=== PATIENT | male | born 1970 | race Caucasian/White ===

== ENCOUNTER 2020-01-25 16:09 | Emergency (ER) | payer SELFPAY ==
[~2020-01-25] VITALS: Ht 167.6 cm; Wt 70.0 kg
[~2020-01-25 16:09] MED LIST: CLIN300C8 PO
--- NOTE | 2020-01-25 18:00 | RAD ---
Exam: CT head INDICATION: Seizure this a.m. TECHNIQUE: Sequential axial images through the head were obtained without the administration of IV contrast. Comparisons: None FINDINGS: No focal parenchymal lesion or hemorrhage is identified. There is no midline shift or sulcal effacement. No acute vascular territory infarction is identified. Yang-white distinction is preserved. The ventricular system is within normal limits without compression hydrocephalus. The basal cisterns are well maintained. The visualized portions of the paranasal sinuses and mastoid air cells are well-pneumatized. No acute fractures. IMPRESSION: No acute intracranial abnormality. Exposure: One or more of the following in the visualized dose reduction techniques were utilized for this examination: 1. Automated exposure control 2. Adjustment of the MA and/or KV according to patient size Use of iterative of reconstructive technique Electronically signed by: Ganesh Munguia MD (01/25/2020 5:57 PM) [id number]
[2020-01-25 18:07] LABS: BASO # 0.1 x10^3/uL (0.0-0.2); BASO % 1 % (0-3); EOS # 0.1 x10^3/uL (0.0-0.7); EOS % 1 % (0-3); HEMATOCRIT 48.1 % (39.0-53.0); HEMOGLOBIN 16.3 g/dL (13.0-17.5); LYMPH # 1.7 x10^3/uL (1.0-4.8); LYMPH % 14 % (24-48); MEAN CORPUSCULAR HEMOGLOBIN 29 pg (25-35); MEAN CORPUSCULAR HGB CONC 34 g/dL (31-37); MEAN CORPUSCULAR VOLUME 85 fL (79-100); MONO # 0.7 x10^3/uL (0.0-1.1); MONO % 6 % (0-9); NEUT # 9.9 x10^3/uL (1.8-7.7); NEUT % 79 % (31-73); PLATELET COUNT 281 x10^3/uL (140-400); RED BLOOD COUNT 5.69 x10^6/uL (4.30-5.70); RED CELL DISTRIBUTION WIDTH 14.4 % (11.5-14.5); WHITE BLOOD COUNT 12.5 x10^3/uL (4.0-11.0)
[2020-01-25 18:07] LABS: BILIRUBIN,URINE NEGATIVE (NEG); CLARITY,URINE CLEAR; COLOR,URINE YELLOW; NITRITE,URINE NEGATIVE (NEG); PROTEIN,URINE NEGATIVE (NEG-TRACE); UROBILINOGEN,URINE 0.2 mg/dL (0.2 mg/dL)
[2020-01-25 18:11] LABS: CALCIUM 8.9 mg/dL (8.5-10.1); CREATININE 1.1 mg/dL (0.7-1.3); GFR 71.8; POTASSIUM 4.2 mmol/L (3.5-5.1)
[2020-01-25 18:16] LABS: ALBUMIN/GLOBULIN RATIO 1.3 (1.0-1.7); MAGNESIUM 2.6 mg/dL (1.8-2.4); TOTAL BILIRUBIN 0.2 mg/dL (0.2-1.0); TOTAL PROTEIN 7.1 g/dL (6.4-8.2)
[2020-01-25 18:16] LABS: BACTERIA,URINE 0 /HPF (0-FEW); RBC,URINE 0 /HPF (0-2); SQUAMOUS EPITHELIAL CELL,UR FEW /LPF; WBC,URINE OCC /HPF (0-4)
[2020-01-25 18:21] LABS: PROTHROMBIN TIME PATIENT 12.1 SEC (11.7-14.0)
[2020-01-25 18:24] LABS: BARBITURATES NEG (NEG); BENZODIAZEPINES NEG (NEG); CANNABINOIDS POS (NEG); COCAINE NEG (NEG); METHADONE NEG (NEG); OPIATES NEG (NEG); PHENCYCLIDINE NEG (NEG)
[2020-01-25 18:28] LABS: AMPHETAMINE/METHAMPHETAMINE NEG (NEG)
[2020-01-25 18:56] VITALS: BP 108/72
--- NOTE | 2020-01-25 18:57 | PHYS DOC ---
Past Medical History Past Medical History: No Pertinent History (LORIE JEFFERSON APRN) Past Surgical History: No Surgical History (LORIE JEFFERSON APRN) Smoking Status: Current Every Day Smoker Alcohol Use: Occasionally Drug Use: Marijuana (LORIE JEFFERSON APRN) Attending Signature I have participated in the care of this patient and I have reviewed and agree with all pertinent clinical information above including history, exam, and recommendations. (GRUPO DHILLON MD) Adult General Chief Complaint Chief Complaint: SEIZURE HPI HPI Patient is a 49 year old male, who presents to the emergency department via POV today with complaints of a like activity that happened early this morning while the patient was sleeping. Patient states that his significant other called the ambulance after she found him shaking all over in the bed and foaming at the mouth. Patient states he did not come to the hospital by ambulance because he was told he refused to be transferred. Patient denies any history of seizures. He states he does not remember refusing ambulance transfer to the hospital or anything about the events that occurred this morning. He is unable to recall anything until after he woke up from a nap this afternoon. He denies any recent head injury. He currently complains of a dull headache and feeling sore all over. Patient currently rates his pain a 4 out of 10 on the pain scale, he states that is mostly in the right lateral side of his neck and radiates to the back of his head. He denies any nausea, vomiting, diarrhea, abdominal pain, chest pain, palpitations, fever, ear pain, sore throat, cough, shortness of breath, or wheezing. He denies any alleviating or exacerbating factors. (LORIE JEFFERSON APRN) Review of Systems Review of Systems Complete ROS is negative unless otherwise noted in HPI. (LORIE JEFFERSON APRN) Allergies Allergies Allergies Coded Allergies Type Severity Reaction Last Updated Verified No Known Allergies Allergy Unknown 05/01/16 Yes (GRUPO DHILLON MD) Physical Exam Physical Exam See Above Constitutional: Well developed, well nourished, no acute distress, non-toxic appearance. [] HENT: Normocephalic, atraumatic, bilateral external ears normal, oropharynx moist, no oral exudates, nose normal. [] Eyes: PERRLA, EOMI, conjunctiva normal, no discharge. [] Neck: Normal range of motion, no bony tenderness, supple, no stridor. [] Cardiovascular:Heart rate regular rhythm, no murmur [] Lungs & Thorax: Bilateral breath sounds clear to auscultation, Respirations even and unlabored, no retractions, no respiratory distress [] Abdomen: Bowel sounds normal, soft, no tenderness, no masses, no pulsatile masses. [] Skin: Warm, dry, no erythema, no rash. [] Back: No tenderness Extremities: No cyanosis, ROM intact, no edema. [] Neurologic: Alert and oriented X 3, no focal deficits noted. [] Psychologic: Affect normal, judgement normal, mood normal. [] (LORIE JEFFERSON APRN) Current Patient Data Vital Signs Vital Signs Date Time Temp Pulse Resp B/P (MAP) Pulse Ox O2 Delivery O2 Flow Rate FiO2 01/25/20 18:56 66 16 98 01/25/20 17:15 97.9 149/88 (108) Room Air 97.9 (GRUPO DHILLON MD) Lab Values Laboratory Tests Test 01/25/20 17:15 01/25/20 17:27 Urine Collection Type Unknown Urine Color Yellow Urine Clarity Clear Urine pH 6.0 (<5.0-8.0) Urine Specific [place] 1.010 (1.000-1.030) Urine Protein Negative mg/dL (NEG-TRACE) Urine Glucose (UA) Negative mg/dL (NEG) Urine Ketones (Stick) Negative mg/dL (NEG) Urine Blood Negative (NEG) Urine Nitrite Negative (NEG) Urine Bilirubin Negative (NEG) Urine Urobilinogen Dipstick 0.2 mg/dL (0.2 mg/dL) Urine Leukocyte Esterase Negative (NEG) Urine RBC 0 /HPF (0-2) Urine WBC Occ /HPF (0-4) Urine Squamous Epithelial Cells Few /LPF Urine Bacteria 0 /HPF (0-FEW) Urine Opiates Screen Neg (NEG) Urine Methadone Screen Neg (NEG) Urine Barbiturates Neg (NEG) Urine Phencyclidine Screen Neg (NEG) Urine Amphetamine/Methamphetamine Neg (NEG) Urine Benzodiazepines Screen Neg (NEG) Urine Cocaine Screen Neg (NEG) Urine Cannabinoids Screen Pos (NEG) Urine Ethyl Alcohol Neg (NEG) White Blood Count 12.5 x10^3/uL (4.0-11.0) H Red Blood Count 5.69 x10^6/uL (4.30-5.70) Hemoglobin 16.3 g/dL (13.0-17.5) Hematocrit 48.1 % (39.0-53.0) Mean Corpuscular Volume 85 fL (79-100) Mean Corpuscular Hemoglobin 29 pg (25-35) Mean Corpuscular Hemoglobin Concent 34 g/dL (31-37) Red Cell Distribution Width 14.4 % (11.5-14.5) Platelet Count 281 x10^3/uL (140-400) Neutrophils (%) (Auto) 79 % (31-73) H Lymphocytes (%) (Auto) 14 % (24-48) L Monocytes (%) (Auto) 6 % (0-9) Eosinophils (%) (Auto) 1 % (0-3) Basophils (%) (Auto) 1 % (0-3) Neutrophils # (Auto) 9.9 x10^3/uL (1.8-7.7) H Lymphocytes # (Auto) 1.7 x10^3/uL (1.0-4.8) Monocytes # (Auto) 0.7 x10^3/uL (0.0-1.1) Eosinophils # (Auto) 0.1 x10^3/uL (0.0-0.7) Basophils # (Auto) 0.1 x10^3/uL (0.0-0.2) Prothrombin Time 12.1 SEC (11.7-14.0) Prothrombin Time INR 0.9 (0.8-1.1) Activated Partial Thromboplast Time 25 SEC (24-38) Sodium Level 137 mmol/L (136-145) Potassium Level 4.2 mmol/L (3.5-5.1) Chloride Level 102 mmol/L (98-107) Carbon Dioxide Level 28 mmol/L (21-32) Anion Gap 7 (6-14) Blood Urea Nitrogen 11 mg/dL (8-26) Creatinine 1.1 mg/dL (0.7-1.3) Estimated GFR (Cockcroft-Gault) 71.8 BUN/Creatinine Ratio 10 (6-20) Glucose Level 83 mg/dL (70-99) Lactic Acid Level 0.7 mmol/L (0.4-2.0) Calcium Level 8.9 mg/dL (8.5-10.1) Magnesium Level 2.6 mg/dL (1.8-2.4) H Total Bilirubin 0.2 mg/dL (0.2-1.0) Aspartate Amino Transferase (AST) 23 U/L (15-37) Alanine Aminotransferase (ALT) 32 U/L (16-63) Alkaline Phosphatase 88 U/L (46-116) Creatine Kinase 408 U/L (39-308) H Creatine Kinase MB (Mass) 4.4 ng/mL (0.0-3.6) H Creatine Kinase MB Relative Index 1.1 % (0-4) Troponin I Quantitative < 0.017 ng/mL (0.000-0.055) Total Protein 7.1 g/dL (6.4-8.2) Albumin 4.0 g/dL (3.4-5.0) Albumin/Globulin Ratio 1.3 (1.0-1.7) Ethyl Alcohol Level < 10 mg/dL (0-10) Laboratory Tests 01/25/20 17:27 Laboratory Tests 01/25/20 17:27 (GRUPO DHILLON MD) EKG EKG [] (LORIE JEFFERSON APRN) Radiology/Procedures Radiology/Procedures PROCEDURE: CT HEAD WO CONTRAST Exam: CT head INDICATION: Seizure this a.m. TECHNIQUE: Sequential axial images through the head were obtained without the administration of IV contrast. Comparisons: None FINDINGS: No focal parenchymal lesion or hemorrhage is identified. There is no midline shift or sulcal effacement. No acute vascular territory infarction is identified. Yang-white distinction is preserved. The ventricular system is within normal limits without compression hydrocephalus. The basal cisterns are well maintained. The visualized portions of the paranasal sinuses and mastoid air cells are well-pneumatized. No acute fractures. IMPRESSION: No acute intracranial abnormality. Exposure: One or more of the following in the visualized dose reduction [] (LORIE JEFFERSON APRN) Course & Med Decision Making Course & Med Decision Making Pertinent Labs and Imaging studies reviewed. (See chart for details) Patient is a 49-year-old male who presented to the emergency room for evaluation following a reported witnessed seizure-like episode that happened earlier this morning. Work-up included a lab work and CT scan. CBC revealed a white blood cell count of 12.5, otherwise unremarkable; PT and INR within normal limits; CMP revealed an magnesium of 2.6, CK of 408, CK-MB of 4.4, negative troponin, negative lactic acid; UA is unremarkable; [] UDS was positive for cannabinoids which the patient admitted to using marijuana daily. CT scan of his head revealed no acute findings. The patient's vital signs were stable in the emergency department there was no seizure activity while in our care. He is encouraged to follow-up with Dr. Hardy for further evaluation of possible seizure-like activity. Patient was instructed not to drive until he had been evaluated and cleared by Dr. Hardy. He was also encouraged to return to the emergency room if his symptoms worsen. Patient verbalized an understanding of home care, medications, follow-up, and return to ED instructions and was in agreement with the plan of care. (LORIE JEFFERSON APRN) Dragon Disclaimer Dragon Disclaimer This electronic medical record was generated, in whole or in part, using a voice recognition dictation system. (LORIE JEFFERSON APRN) Departure Departure Impression: Primary Impression: Witnessed seizure-like activity Disposition: HOME, SELF-CARE Condition: STABLE Referrals: NO PCP (PCP) JUAN KAY MD Patient Instructions: Seizure, Adult, [id number] Additional Instructions: You have been diagnosed with an episode of seizure-like activity. This requires further evaluation by a neurologist. Please follow-up with Dr. Hardy for further evaluation. Do not drive until you have been evaluated by Dr. Hardy. Please return to the emergency room if symptoms worsen. LORIE JEFFERSON APRN Jan 25, 2020 18:57 GRUPO DHILLON MD Jan 26, 2020 01:33
--- NOTE | 2020-01-26 05:51 | EKG ---
[facility] [address] [place] [address] Test Date: 2020-01-25 Test Time: 18:01:45 Pat Name: JUAN MCCLELLAND Department: Room: Gender: M [employer] Tech: : [id number] Requested By: LORIE JEFFERSON Order Number: [id number] Reading MD: Measurements Intervals [place] Rate: 71 P: 66 OK: 150 QRS: 58 QRSD: 74 T: 69 QT: 356 QTc: 391 Interpretive Statements SINUS RHYTHM LEFT ATRIAL ABNORMALITY ABNORMAL ECG RI6.01 No previous ECG available for comparison
== END 2020-01-25 19:16 | disposition home or self-care (01) ==
LOC: ER 16:09
DX: R56.9 Unspecified convulsions (principal); R51 Headache; F17.200 Nicotine dependence, unspecified, uncomplicated; F12.90 Cannabis use, unspecified, uncomplicated
CPT/HCPCS: 36415; 70450; 80053; 80307; 81001; 82553; 83605; 83735; 84484; 85025; 85610; 85730; 93005; 99285; G0480